=== PATIENT | female | born 1990 | race Two or more races ===

== ENCOUNTER 2025-01-30 10:12 | Emergency (ER) | payer OTHER ==
[2025-01-30 10:20] VITALS: BP 116/75; PULSE 86; RESP 18; TEMP 98.5; BMI 22.1
[2025-01-30 11:40] LABS: ABSOLUTE IMMATURE GRANULOCYTES 0.06 x10^3/uL (0.0-0.031); BASOPHILS # 0.03 x10^3/uL (0.01-0.08); EOSINOPHIL % 0.0 % (0.7-5.8); EOSINOPHILS # 0.00 x10^3/uL (0.04-0.36); MCHC 32.6 g/dl (32.2-35.5); MEAN CELL VOLUME 94.3 fl (79.4-94.8); MEAN PLT VOLUME 11.0 fl (9.4-12.3); MONOCYTE # 0.26 x10^3/uL (0.24-0.86); MONOCYTE % 6.2 % (4.7-12.5); RDW 13.7 % (12.1-16.8)
[2025-01-30 12:03] LABS: GLUCOSE,RANDOM 81.0 mg/dL (74-106)
[2025-01-30 12:04] LABS: TOT PROT 7.5 g/dl (6.4-8.2)
[2025-01-30 12:05] LABS: CO2 24.0 mmol/L (21-32)
[2025-01-30 12:06] LABS: ALK PHOS 68.0 U/L (40-150)
[2025-01-30 12:09] LABS: CREATININE 0.69 mg/dL (0.55-1.3); SGOT/AST 53.0 U/L (5-34); SGPT/ALT 70.0 U/L (0-55)
[2025-01-30] MEDS: ONDANSETRON *ODT* 4 MG TABLET SL ONE (13:50)
== END 2025-01-30 16:15 | disposition home or self-care (01) ==
LOC: JER 10:12
DX: O03.9 Complete or unspecified spontaneous abortion without complication (principal)
CPT/HCPCS: 36415; 80053; 84702; 85025